=== PATIENT | female | born 1985 | race Two or more races ===

== ENCOUNTER 2018-06-26 10:00 | Outpatient (CLI) | payer OTHER ==
[~2018-06-26 10:00] MED LIST: FOLIC ACID0.4 MG PO; PROGESTERONE200 MG PO; [UNRECOGNIZED DRUG - OTHER]
== END 2018-06-26 10:07 | disposition home or self-care (01) ==
LOC: LAB 10:00
DX: J11.1 Influenza due to unidentified influenza virus with other respiratory manifestations (principal); J11.81 Influenza due to unidentified influenza virus with encephalopathy

== ENCOUNTER 2024-10-30 09:45 | Inpatient (IN) | payer OTHER ==
[~2024-10-30] VITALS: Ht 157.5 cm; Wt 72.6 kg
[2024-10-30 12:01] LABS: BASO % 0.2 % (0.1-1.2); EOS # 0.19 (0.04-0.54); EOS % 2.1 % (0.7-7.0); LYMPH # 1.94 (1.18-3.74); LYMPH % 21.0 % (19.3-53.1); MEAN PLATELET VOLUME 11.70 fl (9.4-12.4); MONO # 0.58 (0.24-0.82); MONO % 6.3 % (4.7-12.5); NEUT # 6.45 (1.56-6.13); NEUT % 69.8 % (34.0-71.1); RED CELL DISTRIBUTION WIDTH 13.2 % (11.6-14.4)
[2024-10-30 12:43] LABS: INR 0.94
[2024-10-30 12:54] LABS: ALT/SGPT 22.0 U/L (12-78); AST/SGOT 15.0 U/L (15-37); BILIRUBIN TOTAL 0.33 mg/dL (0.3-1.2); BUN CREA RATIO 21.0 (7.0-25.0); CREATININE SERUM 0.43 mg/dL (0.55-1.02); GFR 163.47; GLOBULINA 3.4 G/DL (2.4-3.5); GLUCOSE FASTING 71.0 mg/dL (65-100); OSMOLALITY SERUM 280.0 MOSM/KG (275-295)
[2024-10-30 13:00] LABS: COVID-19 AG NEGATIVE (NEGATIVE)
[2024-11-05 06:17] VITALS: BP 124/82
[2024-11-05] MEDS ORDERED: OBSTETRIX DHA1 EAC1 PO (06:27)
[2024-11-05] MEDS ORDERED: CITRIC ACID/SODIUM CITRATE 30 ML BLIST.PACK PO ONE (07:15)
[2024-11-05] MEDS ORDERED: CEFAZOLIN SODIUM 1,000 MG VIAL ONE (07:15)
[2024-11-05] MEDS ORDERED: ERYTHROMYCIN BASE OPHT 1GM EACH TUBE OP ONE (07:23)
[2024-11-05] MEDS ORDERED: OXYTOCIN 10 UNITS/ML VIAL ONE (07:23)
[2024-11-05] MEDS ORDERED: RINGERS SOLUTION,LACTATED 1,000 ML IV SCH (08:15)
[2024-11-05] MEDS ORDERED: MORPHINE SULFATE 4 MG/ML CARTRIDGE IV PRN (08:15)
[2024-11-05] MEDS ORDERED: OXYTOCIN 1,000 ML IV ONE (08:15)
[2024-11-05] MEDS ORDERED: ONDANSETRON HCL 2 MG/ML VIAL IV PRN (08:15)
[2024-11-05] MEDS ORDERED: DOCUSATE SODIUM 100MG CAP PO SCH (09:00)
[2024-11-05] MEDS ORDERED: SIMETHICONE 125 MG CAPSULE PO SCH (09:00)
[2024-11-05] MEDS ORDERED: GABAPENTIN 300 MG CAPSULE PO SCH (09:00)
[2024-11-05] MEDS ORDERED: KETOROLAC TROMETHAMINE 30 MG VIAL ONE (11:05)
[2024-11-05 11:52] VITALS: BP 121/75
[2024-11-05] MEDS ORDERED: KETOROLAC TROMETHAMINE 30 MG VIAL IV SCH (12:00)
[2024-11-05] MEDS ORDERED: ACETAMINOPHEN 500 MG GEL..CAP PO SCH (12:00)
[2024-11-05 16:28] VITALS: BP 123/81
[2024-11-06 00:26] VITALS: BP 109/67
[2024-11-06 06:21] LABS: BASO % 0.3 % (0.1-1.2); EOS # 0.18 (0.04-0.54); EOS % 1.7 % (0.7-7.0); LYMPH # 1.53 (1.18-3.74); LYMPH % 14.5 % (19.3-53.1); MEAN PLATELET VOLUME 11.90 fl (9.4-12.4); MONO # 0.74 (0.24-0.82); MONO % 7.0 % (4.7-12.5); NEUT # 8.05 (1.56-6.13); NEUT % 76.2 % (34.0-71.1); RED CELL DISTRIBUTION WIDTH 13.1 % (11.6-14.4)
[2024-11-06] MEDS ORDERED: KETOROLAC TROMETHAMINE 10 MG TABLET PO SCH (08:00)
[2024-11-06] MEDS ORDERED: OxyCODONE HCL 5 MG TABLET (ROXICODONE) PO PRN (08:00)
[2024-11-06 08:26] VITALS: BP 113/73
[2024-11-06 18:36] VITALS: BP 119/79
[2024-11-07] VITALS: BP 100/62
[2024-11-07 08:16] VITALS: BP 129/85
== END 2024-11-07 13:34 | disposition home or self-care (01) | DRG 788 ==
LOC: O/R 11-05 06:00 → OB/GYN 11-05 06:00 → LDR 11-05 09:45 → OB/GYN 11-07 13:34
PROVIDERS: ADMIT Obstetrics & Gynecology; ATTEND Obstetrics & Gynecology
PROC: 4A1HXCZ Monitoring of Products of Conception, Cardiac Rate, External Approach (ICD-10-PCS; 2024-11-05)
PROC: 10D00Z1 Extraction of Products of Conception, Low, Open Approach (ICD-10-PCS; principal; 2024-11-05 07:30)
DX: O34.211 Maternal care for low transverse scar from previous cesarean delivery (principal); Z3A.39 39 weeks gestation of pregnancy; Z37.0 Single live birth